=== PATIENT | male | born 1980 ===

== ENCOUNTER 2025-03-01 07:25 | Emergency (ER) | payer MEDICAID, OTHER, SELFPAY ==
[2025-03-01] VITALS (7 sets, daily range): BP systolic 133–160; BP diastolic 76–91; PULSE 63–84; RESP 16–30; TEMP 36.2–36.8; O2SAT 95–100; BMI 35.0
--- NOTE | ~2025-03-01 | CT_ITS ---
CLINICAL HISTORY: right flank pain CT abdomen and pelvis without IV or oral contrast Comparison: None Findings: Lung bases show no active disease. No dependent layering pleural effusions. The heart is not enlarged. 4 mm obstructing calculus right UVJ causing renal edema perinephric fluid and mild hydroureteronephrosis on the right. No evidence of obstructive uropathy on the left. Evaluation of the liver, spleen, adrenal glands and pancreas demonstrates no lesions. It should be noted that isodense masses may be obscured in the absence of intravenous contrast. No radiopaque gallstones. Post appendectomy. No pathologically enlarged lymph nodes. No ascites demonstrated. Partially decompressed urinary bladder. No vertebral body compression fractures or spondylolisthesis. No bony destructive lesions. Impression: 1. 4 mm obstructing calculus right UVJ causing renal edema perinephric fluid and mild hydroureteronephrosis on the right 2. Post appendectomy. No radiopaque gallstones. 3. No evidence of obstructive uropathy on the left. This document has been electronically signed by: Alli Jackson MD on 03/01/2025 12:33:38
[2025-03-01 08:16] LABS: MANUAL DIFF FLAG NO
[2025-03-01 08:17] LABS: Hematocrit 43.1 % (42.0-52.0); Hemoglobin 14.8 g/dl (14.0-18.0); Imm Gran Abs Auto 0.01 X10*3/uL (0.00-0.03); Imm Gran Pct Auto 0.1 % (0.0-0.4); Lymphocytes Absolute Auto 1.4 X10*3/uL (1.2-4.9); Mean Corpuscular HGB Conc 34.3 g/dl (31.0-36.0); Mean Corpuscular Hemoglobin 28.8 pg (27.0-33.0); Mean Corpuscular Volume 84.0 fL (80.0-98.0); NRBC Abs Auto 0.000 X10*3/uL (0.0-0.012); NRBC Pct Auto 0.0 /100WBC (0.0-0.2); Platelet Count 187 X10*3/uL (160-400); Red Blood Count 5.13 X10*6/uL (4.60-5.80); White Blood Count 7.9 X10*3/uL (4.8-10.8)
--- NOTE | 2025-03-01 08:25 | ED.ABDPAIN ---
HPI - Abdominal Pain General Chief Complaint: Abdominal Pain Stated Complaint: abd pain around to back Time Seen by Provider: 03/01/25 08:03 Source: patient and family Mode of arrival: ambulatory Limitations: no limitations History of Present Illness ED Provider: SARA BECKWITH PA-C HPI narrative: 44-year-old male presents to the ED today for evaluation of right flank pain which started at approximately 0400 this morning. Pain radiates to his right lower quadrant/right groin area. Reports difficulty finding a comfortable position due to the pain. Endorses nausea and 3 episodes of vomiting prior to arrival in ED today. Admits to associated difficulty urinating, feels as though he is urinating in small amounts. Endorses taking Motrin at approximately 0530 his morning without relief. His pain is currently 10/10. Denies ishmael blood in his urine. Denies fever, chills, dysuria. Denies known history of renal stones. No blunt injury/trauma. Related Data Previous Rx's ?Medication ?Instructions ?Recorded ketorolac 10 mg tablet 10 mg PO Q8H PRN pain (scale score 03/01/25 4-6) 5 days #15 tabs ondansetron 4 mg disintegrating 4 mg PO Q8H PRN nausea and 03/01/25 tablet vomiting #10 tabs prednisone 20 mg tablet 20 mg PO DAILY 5 days #5 tabs 03/01/25 tamsulosin 0.4 mg capsule (Flomax) 0.4 mg PO DAILY 7 days #7 caps 03/01/25 Allergies Allergy/AdvReac Type Severity Reaction Status Date / Time No Known Allergies Allergy Verified 03/01/25 07:44 Review of Systems Review of Systems Yes all other systems are reviewed and are negative PMFSH Past Medical History Attestation statement: The following information was validated with the patient. Source: old records reviewed and nursing notes reviewed Physical Exam ED Vital Signs: Vital Signs - 24 hr 03/01/25 07:40 03/01/25 09:18 03/01/25 09:52 Temperature 97.2 F 97.9 F 97.7 F Pulse Rate 65 63 66 Respiratory Rate 20 16 30 H Blood Pressure 160/76 H 142/91 H 141/90 H Pulse Oximetry 97 97 100 Oxygen Delivery Method Room Air Room Air Room Air 03/01/25 11:27 Temperature 98 F Pulse Rate 70 Respiratory Rate 30 H Blood Pressure 140/88 H Pulse Oximetry 98 Oxygen Delivery Method Room Air BMI result Body Mass Index 35.0 hypertensive, afebrile General: uncomfortable appearing Skin: Warm, dry, intact. No rashes or lesions. Head: Normocephalic, atraumatic. EENT: Hearing is intact b/l. Conjunctiva clear. PERRLA. EOM intact. Moist mucous membranes.? Cardiac: Chest wall symmetric. RRR Lungs: Normal respiratory effort without accessory muscle use. CTA bilaterally Abdomen: Soft, non-tender, non-distended. No rebound tenderness or guarding. Positive BS x4. +right CVAT Back: No midline spinous or paraspinal tenderness. No step off deformity. Ext: Upper and lower extremities atraumatic, without tenderness, deformity, swelling or erythema Neuro: AOx3. Normal speech. Ambulating with steady gait. Course Course Course Narrative: CBC without leukocytosis. Elevated neutrophils. No anemia, H&H stable. Chemistry without acute electrolyte abnormality requiring intervention. BUN mildly elevated to 20, normal creatinine. Random glucose 143, no anion gap. Liver function and lipase WNL. Urine demonstrates large blood, over [address] abdomen/pelvis shows 4 mm obstructing calculus right UVJ causing renal edema, perinephric fluid and mild hydroureter nephrosis on the right. No other acute abnormalities. > I spoke with urologist dr. qiu who is recommending outpatient management with prednisone, Flomax and pain control. > patient reports significant improvement after receiving Toradol. Will send him home with Zofran, Toradol, prednisone and Flomax. Patient agreeable. Advised urology follow up outpatient, referral provided. Patient has remained stable throughout ED visit today. Discussed worrisome signs and symptoms and when to return to the ED. All questions answered at this time. Patient is agreeable with disposition and stable for discharge. Medical Decision Making Medical Decision Making MDM Narrative: 44-year-old male presents to the ED today for evaluation of right flank pain which started at approximately 0400 this morning. hypertensive, afebrile. he is uncomfortable appearing however in NAD. on exam, abdomen soft, non-tender, non-distended. No rebound tenderness or guarding. Positive BS x4. +right CVAT Differential diagnosis includes anemia, electrolyte abnormality, dehydration, MIKEL, UTI, pyelonephritis, nephrolithiasis, renal colic, hydronephrosis Plan for labs, UA, pain control, fluids, re-evaluation. Differential Diagnosis Differential Diagnoses: The differential diagnosis associated with the presentation includes as above. Admission/Observation not indicated. Consult Healthcare Provider Management of the patient was discussed with: Mortgage Loan Originator urology - dr. qiu Lab Data MDM Lab Attestation statement: I reviewed the patient's lab results. as above. 03/01/25 08:11 03/01/25 08:11 Labs: Lab Results 03/01/25 03/01/25 Range/Units 08:11 10:59 WBC 7.9 (4.8-10.8) X10*3/uL RBC 5.13 (4.60-5.80) X10*6/uL Hgb 14.8 (14.0-18.0) g/dl Hct 43.1 (42.0-52.0) % MCV 84.0 (80.0-98.0) fL MCH 28.8 (27.0-33.0) pg MCHC 34.3 (31.0-36.0) g/dl RDW 12.6 (11.0-16.0) % Plt Count 187 (160-400) X10*3/uL MPV 10.4 (9.4-12.4) fL Immature Gran % (Auto) 0.1 (0.0-0.4) % Neut % (Auto) 76.7 H (45-73) % Lymph % (Auto) 18.0 L (20-40) % [place] % (Auto) 4.6 (2-11) % Eos % (Auto) 0.1 (0-4) % Baso % (Auto) 0.5 (0-2) % Lymph # (Auto) 1.4 (1.2-4.9) X10*3/uL [place] # (Auto) 0.4 (0.1-1.2) X10*3/uL Eos # (Auto) 0.0 (0.0-0.4) X10*3/uL Baso # (Auto) 0.0 (0.0-0.2) X10*3/uL Abs Immat Gran (auto) 0.01 (0.00-0.03) X10*3/uL Absolute Neuts (auto) 6.0 (2.0-8.3) x10*3/uL Absolute Nucleated RBC 0.000 (0.0-0.012) X10*3/uL Nucleated RBC % (auto) 0.0 (0.0-0.2) /100WBC Sodium 140 (135-145) mmol/L Potassium 3.9 (3.3-5.1) mmol/L Chloride 107 (96-108) mmol/L Carbon Dioxide 23 (22-29) mmol/L Anion Gap 14 (12-20) BUN 20 H (9-16) mg/dL Creatinine 0.88 (0.5-1.4) mg/dL Estim Creat Clear Calc 97.4 Estimated GFR > 60 Random Glucose 143 H (60-115) mg/dL Calcium 9.1 (8.4-10.2) mg/dL Total Bilirubin 0.5 (0.0-1.0) mg/dL Direct Bilirubin 0.2 (0.0-0.5) mg/dL AST 23 (5-37) U/L ALT 25 (0-40) U/L Alkaline Phosphatase 89 (39-117) U/L Total Protein 7.5 (6.5-8.0) g/dL Albumin 4.4 (3.5-5.0) g/dL Lipase 26 (8-78) U/L Urine Color Yellow Urine Appearance Turbid Urine pH 8.0 (5.0-9.0) Ur Specific [place] 1.025 (1.005-1.025) Urine Protein Negative (Neg-Trace) mg/dL Urine Glucose (UA) Negative (Negative) mg/dL Urine Ketones Negative (Negative) mg/dL Urine Blood Large (3+) H (Negative) Urine Nitrite Negative (Negative) Ur Leukocyte Esterase Negative (Negative) Urine RBC >20 H (0-2) /HPF Urine WBC 0-5 (0-5) /HPF Ur Squamous Epith Cells 0-2 (0-2) /HPF Urine Bacteria None Seen (None Seen) Hyaline Casts 0-2 (0-2) /LPF Independent Interpretation I performed an independent interpretation of an: CT Scan Interpretation: ct a/p showing right uvj stone Radiology Impression Discussion of test interpretation with radiology: I have reviewed the radiologist's reading. Radiologist Impression: Procedure(s): CT abdomen pelvis wo IV con Accession Number(s): [id number] cc: Physician,None ; Sara Beckwith~ Report Number: [id number]: Total DLP = 629.00 mGy-cm Reason for Exam: right flank pain CLINICAL HISTORY: right flank pain CT abdomen and pelvis without IV or oral contrast Comparison: None Findings: Lung bases show no active disease. No dependent layering pleural effusions. The heart is not enlarged. 4 mm obstructing calculus right UVJ causing renal edema perinephric fluid and mild hydroureteronephrosis on the right. No evidence of obstructive uropathy on the left. Evaluation of the liver, spleen, adrenal glands and pancreas demonstrates no lesions. It should be noted that isodense masses may be obscured in the absence of intravenous contrast. No radiopaque gallstones. Post appendectomy. No pathologically enlarged lymph nodes. No ascites demonstrated. Partially decompressed urinary bladder. No vertebral body compression fractures or spondylolisthesis. No bony destructive lesions. Impression: 1. 4 mm obstructing calculus right UVJ causing renal edema perinephric fluid and mild hydroureteronephrosis on the right 2. Post appendectomy. No radiopaque gallstones. 3. No evidence of obstructive uropathy on the left. This document has been electronically signed by: Alli Jackson MD on 03/01/2025 12:33:38 External Record Review External record reviewed: Inpatient record Prescription Management I considered prescription management with: Pain Medication and Other (prednisone, flomax) Social Determinants Patient?s care significantly limited by Social Determinants of Health including: Other Social Determinant of Health Medications Administered Discontinued Medications Generic Name Dose Route Start Last Admin Trade Name Freq PRN Reason Stop Dose Admin Hydromorphone HCl 1 mg 03/01/25 11:16 03/01/25 11:23 Hydromorphone Hcl 1 Mg/Ml Syringe IVPUSH 03/01/25 11:17 1 mg ONCE ONE Administration Protocol Acetaminophen 1,000 mg in 100 mls @ 400 mls/hr 03/01/25 08:18 03/01/25 09:18 Ofirmev IV 03/01/25 08:32 Infused ONCE ONE Infusion Sodium Chloride 1,000 mls @ 999 mls/hr 03/01/25 08:30 03/01/25 09:55 Ns IV 03/01/25 09:30 Infused .Q1H1M KAI Infusion Ketorolac Tromethamine 30 mg 03/01/25 12:46 03/01/25 12:58 Ketorolac Tromethamine 30 Mg/Ml Vial IVPUSH 03/01/25 12:47 30 mg ONCE ONE Administration Morphine Sulfate 4 mg 03/01/25 09:42 03/01/25 09:47 Morphine Sulfate 4 Mg/Ml Cartridge IVPUSH 03/01/25 09:43 4 mg ONCE ONE Administration Protocol Ondansetron HCl 4 mg 03/01/25 11:17 03/01/25 11:23 Ondansetron Hcl 4 Mg/2 Ml Vial IVPUSH 03/01/25 11:18 4 mg ONCE ONE Administration Critical Care Time Critical Care Time Critical Care Time: Yes Total Critical Care Time: 40 Attestation: Critical care time in the amount of 40 minutes has been provided to the patient in terms of direct patient care, frequent reevaluation on IV morphine and dilaudid, consultation with urology, review and interpretation of medical data and results, and management of potentially life-threatening conditions. This is all outside of any medical procedures. Discharge Plan Discharge Clinical Impression: Calculus of kidney Patient Disposition: Home, Self-Care Instructions: Kidney Stones (ED), Low Oxalate Diet (ED) Additional Instructions: You were evaluated in the ED today for abdominal and back pain. Your blood work is reassuring. Your urine has a small amount of blood in it. Your urine is otherwise not infected. The CT scan of your abdomen shows a 4 mm obstructing stone within your right ureter. This is what is causing your discomfort. This stone should pass on its own without surgical intervention. I am starting you on Flomax. Take this once nightly to help pass the stone. You should urinate this out. I am also starting you on a 5 day course of low-dose prednisone. Take this as prescribed daily for 5 days. I am sending a 5 day script for Toradol, an anti-inflammatory pain medicine, to your pharmacy. Do not take this with other NSAIDs such as Motrin/Aleve/ibuprofen as this can cause increased risk of GI bleeding. Zofran has been sent to your pharmacy for you to take as needed for nausea/vomiting. Follow up with Urology. You have been provided with a referral. Call them to establish care. They will not call you. Prescriptions: New ketorolac 10 mg tablet 10 mg PO Q8H PRN (Reason: pain (scale score 4-6)) 5 Days Qty: 15 0RF Rx Instructions: maximum total duration of 5 days from all oral, intranasal, or parenteral formulations ondansetron 4 mg tablet,disintegrating 4 mg PO Q8H PRN (Reason: nausea and vomiting) Qty: 10 0RF prednisone 20 mg tablet 20 mg PO DAILY 5 Days Qty: 5 0RF tamsulosin [Flomax] 0.4 mg capsule 0.4 mg PO DAILY 7 Days Qty: 7 0RF Referrals: [facility] [Provider Group, Urology] Physician,None [Primary Care Provider, Medical] Interventions: ED Discharge Assessment Last Done: 03/01/25 14:43 Discharge Date/Time: 03/01/25 14:43 Print Language: [place]
[2025-03-01 08:43] LABS: Alanine Aminotransferase 25 U/L (0-40); Albumin Level 4.4 g/dL (3.5-5.0); Alkaline Phosphatase 89 U/L (39-117); Anion Gap 14 (12-20); Aspartate Amino Transferase 23 U/L (5-37); Blood Urea Nitrogen 20 mg/dL (9-16); Calcium 9.1 mg/dL (8.4-10.2); Carbon Dioxide 23 mmol/L (22-29); Chloride 107 mmol/L (96-108); Creatinine Clr Calc Pharmacy 97.4; Estimated Glomerular Filt Rate > 60; Lipase 26 U/L (8-78); Potassium 3.9 mmol/L (3.3-5.1); Sodium 140 mmol/L (135-145); Total Protein 7.5 g/dL (6.5-8.0)
[2025-03-01 11:07] LABS: Appearance Urine Turbid; Glucose Urine UA Negative (Negative); PH 8.0 (5.0-9.0); Specific Gravity - Urine 1.025 (1.005-1.025); UMIC TRIGGER UACC YES
== END 2025-03-01 14:43 | disposition home or self-care (01) ==
PROVIDERS: Emergency Provider Emergency Medicine Emergency Medical Services
DX: N20.0 Calculus of kidney (principal); R10.31 Right lower quadrant pain; R11.2 Nausea with vomiting, unspecified
CPT/HCPCS: 36415; 74176; 80048; 80076; 81001; 83690; 85025; 99284; 99285; J0131; J1171; J1885; J2270; J2405

== ENCOUNTER → 2025-03-01 09:42 | Outpatient (BNV) | payer MEDICAID, SELFPAY | PROVIDERS: Emergency Provider Emergency Medicine Emergency Medical Services; Visit Provider Radiology Diagnostic Radiology | DX: R10.A1 Flank pain, right side (principal) | CPT/HCPCS: 74176 ==

== ENCOUNTER 2025-04-03 12:59 | Outpatient (AMB) | payer SELFPAY ==
--- NOTE | 2025-04-03 13:01 | A.OFFVIS_ITS ---
Intake Visit Reasons: kidney stones Intake Note: New Patient is present for kidney stones Urology Rx: Tamsulosin ( completed course ) Blood Thinners:none NKDA Imaging completed:Abd Pelvis CT 03/01/25 Instrumentation And Controls Designer Required: Yes Instrumentation And Controls Designer Language: Georgian Accompanied by: Self / Same As Patient Allergies No Known Allergies Allergy (Verified 04/03/25 13:02) HPI Comments Details: Chris is a pleasant Georgian-speaking male. He seen for the following urologic conditions - renal calculus Recently seen in emergency room CT scan - small stone distal Spontaneous passage Six-month follow-up imaging Encourage fluid intake Review of Systems Const Denies chills and Denies fever(s) Card Reports no additional complaints and Denies syncope Resp Denies cough GI Denies abdominal pain and Denies heartburn Reports as per HPI and Denies change in libido Neuro Denies syncope Psych Denies change in libido Endo Denies change in libido Physical Exam Const General: cooperative, healthy appearing, comfortable and no acute distress Orientation/consciousness: patient oriented x3 HEENT Face and sinus: Yes normal facial exam Mouth: moist mucous membranes Neck Neck: Yes normal visual inspection, Yes full ROM and Yes trachea midline Chest Chest palpation & inspection: normal inspection of the chest Resp Effort & Inspection: normal respiratory effort, able to speak in complete sentences and no respiratory distress GI Inspection: Yes normal to inspection Back/Spine/Pelvis Cervical Spine: normal cervical lordosis Thoracic/Lumbar Spine: thoracic and lumbar spine normal to inspection Skin General skin exam: no rashes or lesions noted Neuro General: patient oriented x3, gait normal, tone normal and moves all extremities Extrem General: Yes normal to inspection and Yes capillary refill normal Results AMB Urinalysis, Automated UA Leukoctes 0 Robel/uL Last Edit by DIVYA Solis on 04/03/25 13:11 UA Nitrite Negative Last Edit by DIVYA Solis on 04/03/25 13:11 UA Urobilinogen 0.2 mg/dL Last Edit by DIVYA Solis on 04/03/25 13:11 UA Protein 0 mg/dL Last Edit by DIVYA Solis on 04/03/25 13:11 UA pH 6.0 Last Edit by DIVYA Solis on 04/03/25 13:11 UA Blood 0 Christopher/uL Last Edit by DIVYA Solis on 04/03/25 13:11 UA Specific [place] 1.020 Last Edit by Mercy [facility] on 04/03/25 13:1 1 UA Ketone Negative Last Edit by Mercy DIVYA Pleitez on 04/03/25 13:11 UA Bilirubin 0 mg/dL Last Edit by Mercy Maik, [facility] on 04/03/25 13:11 UA Glucose 0 mg/dL Last Edit by Mercymigdalia Pleitez [facility] on 04/03/25 13:11 Results Reviewed Results Reviewed: Laboratory Last Values Urine pH (Auto) 6.0 04/03/25 13:11 Specific [place] (Auto) 1.020 04/03/25 13:11 Urine Protein (Auto) 0 mg/dL 04/03/25 13:11 Glucose (UA)(Auto) 0 mg/dL 04/03/25 13:11 Urine Ketones (Auto) Negative 04/03/25 13:11 Urine Blood (Auto) 0 Christopher/uL 04/03/25 13:11 Urine Nitrite (Auto) Negative 04/03/25 13:11 Urine Bilirubin (Auto) 0 mg/dL 04/03/25 13:11 Urine Urobilinogen (Auto) 0.2 mg/dL 04/03/25 13:11 Leukocyte Esterase (Auto) 0 Robel/uL 04/03/25 13:11 Assessment & Plan Assessment & Plan (1) Calculus of kidney: Code(s): N20.0 - Calculus of kidney Category: Medical Plan Six-month follow-up KUB Orders: Orders AMB Urinalysis Automated Today N13.8 - Other obstructive and reflux uropathy, N40.1 - Benign prostatic hyperplasia with lower urinary tract symptoms Medications: Discontinued tamsulosin (Flomax) Discontinued Reason: Patient Completed Course 0.4 mg PO DAILY 7 days 7 caps 0RF Patient Instructions: This note is constructed using voice recognition software. While every effort has been made to ensure accuracy manufacturing specialist errors may have been included. Imaging studies, laboratory and physical exam results were discussed and reviewed in detail. No major barriers to patient understanding were identified. An opportunity to ask questions regarding the treatment plan was provided. All questions were answered. The patient expressed understanding and agreement with the above treatment plan. The patient is aware they should contact our office by phone for worsening of their current condition or the appearance of new urologic symptoms. Compliance is encouraged with any medications and followup testing that is ordered. It is a privilege to participate in the urologic care of your patient. If you have any questions or concerns regarding treatment for the above conditions, or other urologic issues, please do not hesitate to contact me. The office telephone contact is [phone]. Sincerely, Dr Harjit Galarza MD, [facility] - Urology Compassionate Specialist Care for the Genitourinary System Coding Level of Care Code New Pt Level 3 (67049) Diagnoses Calculus of kidney N20.0
== END 2025-04-03 14:04 | disposition home or self-care (01) ==
PROVIDERS: Visit Provider Urology
DX: N40.1 Benign prostatic hyperplasia with lower urinary tract symptoms (principal); N13.8 Other obstructive and reflux uropathy; N20.0 Calculus of kidney
CPT/HCPCS: 99203

== ENCOUNTER → 2025-04-03 12:59 | Outpatient (BNVA) | payer MEDICAID, OTHER, SELFPAY | PROVIDERS: Visit Provider Urology | DX: N20.0 Calculus of kidney (principal); N13.8 Other obstructive and reflux uropathy; N40.1 Benign prostatic hyperplasia with lower urinary tract symptoms | CPT/HCPCS: 81003; 99202 ==